=== PATIENT | male | born 1980 | race African-American/Black ===

== ENCOUNTER 2018-02-27 20:06 | Emergency (ER) | payer OTHER ==
[~2018-02-27] VITALS: Ht 170.1 cm; Wt 79.4 kg
[~2018-02-27 20:06] MED LIST: CIPRO500 MG PO; CLEOCIN HCL150 MG PO; VIBRA-TAB100 MG PO; VIBRAMYCIN100 MG PO
[2018-02-27 20:09] VITALS: BP 133/80
== END 2018-02-28 00:15 | disposition left against medical advice (07) ==
LOC: ED 20:06
DX: R45.851 Suicidal ideations (principal); F17.200 Nicotine dependence, unspecified, uncomplicated; Z53.21 Procedure and treatment not carried out due to patient leaving prior to being seen by health care provider

== ENCOUNTER 2018-05-12 23:23 | Emergency (ER) | payer OTHER ==
[~2018-05-12] VITALS: Ht 170.1 cm; Wt 81.6 kg
[2018-05-12 23:25] VITALS: BP 143/60
== END 2018-05-13 01:39 | disposition home or self-care (01) ==
LOC: ED 23:23
DX: S61.210A Laceration without foreign body of right index finger without damage to nail, initial encounter (principal); S61.212A Laceration without foreign body of right middle finger without damage to nail, initial encounter; S61.214A Laceration without foreign body of right ring finger without damage to nail, initial encounter; W22.8XXA Striking against or struck by other objects, initial encounter; Y93.89 Activity, other specified; Y92.89 Other specified places as the place of occurrence of the external cause; Y99.8 Other external cause status